=== PATIENT | male | born 1945 | race Caucasian/White ===

== ENCOUNTER 2024-03-07 18:15 | Emergency (ER) | payer MEDICARE, SELFPAY ==
[2024-03-07] VITALS (11 sets, daily range): BP systolic 101–142; BP diastolic 51–88; PULSE 63–74; RESP 13–20; TEMP 36.4; O2SAT 96–100
--- NOTE | ~2024-03-07 | XR_ITS ---
XR chest 2V Ordering provider: Kylee Joseph MD History: 78 years Male with . syncopal episode . Comparison: June 19, 2019 FINDINGS: MEDIASTINUM: The cardiac silhouette is not enlarged. LUNGS: No infiltrates, effusions or pneumothorax. OTHER: No free air under the diaphragm. Degenerative the spine. IMPRESSION: No acute cardiopulmonary pathology. Reviewed, dictated and finalized at location A.
--- NOTE | 2024-03-07 18:23 | ECG_ITS ---
Test Date: 2024-03-07 18:36:45 Measurements Intervals [place] Rate: 65 P: 96 MT: 199 QRS: 24 QRSD: 113 T: 32 QT: 436 QTc: 454 Interpretive Statements SINUS RHYTHM MODERATE INTRAVENTRICULAR CONDUCTION DELAY [110+ ms QRS DURATION] No previous ECG available for comparison Electronically Signed On 03-09-2024 13:21:59 CDT by Ronan Buckley M.D.
--- NOTE | 2024-03-07 18:40 | ED.SYNCOPE ---
HPI - Syncope General Chief Complaint: Syncope Stated Complaint: SNYCOPE Time Seen by Provider: 03/07/24 18:31 Source: patient Mode of arrival: EMS Limitations: dementia History of Present Illness HPI narrative: This is a 78-year-old male that presents to the emergency department after an episode of unresponsiveness. Reports he was eating dinner with friends. He was told he was unresponsive for a couple of minutes. He does not remember the event. He does not believe he fully passed out or fell and hit his head. He denies any prodromal symptoms. He does not report any symptoms currently. Denies chest pain, shortness of breath, palpitations, focal numbness or weakness. Related Data Home Medications Medication Instructions Recorded Confirmed levetiracetam 750 mg tablet 750 mg PO Q12H 12/10/23 02/06/24 atorvastatin 40 mg tablet mg PO 02/06/24 02/06/24 Allergies Allergy/AdvReac Type Severity Reaction Status Date / Time No Known Allergies Allergy Mild Verified 03/07/24 18:23 Review of Systems Review of Systems: CONSTITUTIONAL: Denies fever EYES: Denies visual changes CARDIOVASCULAR: Denies chest pain, palpitations, or edema. RESPIRATORY: Denies dyspnea. GASTROINTESTINAL: Denies vomiting NEUROLOGIC: Denies numbness, or weakness. All systems reviewed & are unremarkable except as noted in HPI and below PMFSH Past Medical History Medical History (Updated 03/08/24 @ 00:00 by Geena Dadana) Dementia in Alzheimer's disease with early onset Essential (primary) hypertension Mixed hyperlipidemia Surgical History Surgical History No history of previous surgery Family History Family History Father Diabetes mellitus Hypertension Social History Social History Smoking status: Former smoker Tobacco type: cigars Smoking end date: 07/30/13 Alcohol intake: current Alcohol use details: 1-2 mixed drinks per day. Substance use: never Substance use type: does not use Lack of Transportation: No Lack of Food: Never True Current Housing: I Have Housing Concerned About Future Housing: No Difficulty Paying Gas/Electric Bills: No Difficulty Paying for Meds: No Currently Unemployed: No Education: Bachelor's Degree Difficulty w/ Childcare or Family Care: No Gender identity (if verbalized by the patient): Male Exam Narrative: GENERAL: Well-appearing, well-nourished, and in no acute distress. HEAD: Normocephalic, atraumatic. EYES: PERRLA and EOMI. ENT: Nares clear, no rhinorrhea or epistaxis. Mucous membranes dry. Oropharynx without tonsillar hypertrophy exudate or other lesions. Bilateral TMs pearly barros non-bulging NECK: Supple. No adenopathy or masses. CHEST: Clear to auscultation. No respiratory distress. No wheezes rales or rhonchi HEART: Regular rate and rhythm. No murmur heard. Normal peripheral pulses. EXTREMITIES: Normal range of motion. No edema. Strength equal in bilateral upper and lower extremities (5/5) SKIN: Warm, dry, no rash. NEURO: No focal deficits. Alert and oriented x3. Cranial nerves 2-12 grossly intact PSYCH: Normal mood and affect Course Course Emergency Course: Patient and family updated on workup. He reports feeling much better. Would like to be discharged Vital Signs Vital signs: Vital Signs Temperature 97.6 F 03/07/24 18:15 Pulse Rate 66 03/07/24 18:15 Respiratory Rate 14 03/07/24 18:15 Blood Pressure 109/66 03/07/24 18:15 Pulse Oximetry 100 03/07/24 18:15 Oxygen Delivery Room Air 03/07/24 18:15 Temperature 97.6 F 03/07/24 18:15 Pulse Rate 67 03/07/24 23:01 Respiratory Rate 13 03/07/24 23:01 Blood Pressure 128/65 03/07/24 23:01 Pulse Oximetry 99 03/07/24 23:01 Oxygen Delivery Room Air 03/07/24 18:39 MDM - Syncope MDM Na
[2024-03-07 19:44] LABS: Basophils Absolute Auto 0.1 K/mm3 (0.0-0.1); Basophils Percent Auto 0.4 % (0.2-1.2); Eosinophils Absolute Auto 0.2 K/mm3 (0-0.3); Eosinophils Percent Auto 1.3 % (0-4.4); Hematocrit 39.6 % (42.0-52.0); Hemoglobin 13.1 g/dL (14.0-18.0); Immature Granulocyte Absolute 0.07 K/mm3 (0.00-0.031); Immature Granulocyte Percent A 0.6 % (0-0.5); Lymphocytes Absolute Auto 1.13 K/mm3 (0.9-3.2); Lymphocytes Percent Auto 9.1 % (18.3-44.2); Mean Corpuscular HGB Conc 33.1 g/dl (32-36); Mean Corpuscular Hemoglobin 30.5 pg (26-34); Mean Corpuscular Volume 92.3 fl (80-100); Mean Platelet Volume 9.4 fl (7.4-10.4); Monocytes Absolute Auto 0.7 K/mm3 (0.1-0.6); Monocytes Percent Auto 5.3 % (2.6-8.5); Neutrophils Absolute Auto 10.4 K/mm3 (1.3-6.7); Neutrophils Percent Auto 83.3 % (45.5-73.1); Platelet Count Result 257 k/mm3 (150-375); Red Blood Count 4.29 M/mm3 (4.6-6.20); Red Cell Distribution Width 12.7 % (11.5-14.5); White Blood Count 12.5 K/mm3 (4.5-10.0)
[2024-03-07 19:56] LABS: Alanine Aminotransferase 38 U/L (6-50); Albumin Level 3.9 g/dL (3.5-5.1); Alkaline Phosphatase 106 U/L (38-126); Anion Gap 10 mmol/L (4-12); Aspartate Amino Transferase 33 U/L (17-59); Bilirubin,Total 0.5 mg/dL (0.2-1.3); Blood Urea Nitrogen 21 mg/dL (9-20); Calcium 8.9 mg/dL (8.4-10.2); Carbon Dioxide 28 mmol/L (22-30); Chloride 94 mmol/L (98-107); Estimated CRCL calculation 51 ml/min; Estimated Glomerular Filt Rate 53; Glucose 114 mg/dL (65-110); Potassium 3.7 mmol/L (3.4-5.0); Sodium 132 mmol/L (137-145)
[2024-03-07 20:05] LABS: Troponin I < 0.012 ng/mL (0.000-0.034)
[2024-03-07] MEDS: SODIUM CHLORIDE 0.9% IV 1,000 ML 999 ML IV CONT (20:36)
[2024-03-07 22:59] LABS: Add Urine Microscopic? NO; Appearance Urine Clear (Clear); Bilirubin Urine Negative (Negative); Blood Urine Negative (Negative); Color Urine Yellow (Yellow); Glucose Urine UA Negative (Negative); Ketones Urine Negative (Negative); Leukocyte Esterase Ur Negative LEU/UL (Negative); Nitrate Urine Negative (Negative); Protein Urine Negative (Negative); Specific Grav Ur 1.017 (1.001-1.035); pH Urine 6.5 (5.0-9.0)
== END 2024-03-07 23:55 | disposition home or self-care (01) ==
PROVIDERS: Emergency Medicine; Emergency Provider Physician Assistant; PCP Family Medicine
DX: R40.4 Transient alteration of awareness (principal); E86.0 Dehydration; G30.0 Alzheimer's disease with early onset; F02.80 Dementia in other diseases classified elsewhere, unspecified severity, without behavioral disturbance, psychotic disturbance, mood disturbance, and anxiety; I10 Essential (primary) hypertension; E78.2 Mixed hyperlipidemia; Z87.891 Personal history of nicotine dependence; I45.9 Conduction disorder, unspecified
CPT/HCPCS: 36415; 71046; 80053; 81003; 84484; 85025; 93005; 99284; J7030